=== PATIENT | male | born 1995 | race Caucasian/White ===

== ENCOUNTER 2017-01-17 12:09 | Emergency (ER) | payer OTHER ==
[~2017-01-17] VITALS: Ht 188 cm; Wt 79.5 kg
[2017-01-17 12:12] VITALS: BP 136/60; TEMP 98.1
[2017-01-17 13:38] VITALS: PULSE 69
[2017-01-17] MEDS ORDERED: CRUTCHES MC (13:38)
== END 2017-01-17 13:40 | disposition home or self-care (01) ==
LOC: COL.ER 12:09
DX: S93.402A Sprain of unspecified ligament of left ankle, initial encounter (principal); X50.0XXA Overexertion from strenuous movement or load, initial encounter; Y93.66 Activity, soccer

== ENCOUNTER → 2018-02-07 | Outpatient (CLI) | payer SELFPAY ==
[~2018-02-07] MED LIST: CRUTCHES MC
== END ==
LOC: COL.RAD 13:30
DX: M25.511 Pain in right shoulder (principal)
CPT/HCPCS: A9585; Q9967

== ENCOUNTER → 2018-03-29 | Outpatient (CLI) | payer OTHER | LOC: COL.RAD 13:11 | DX: F07.81 Postconcussional syndrome (principal) | CPT/HCPCS: A9585 ==

== ENCOUNTER 2018-11-21 21:31 | Emergency (ER) | payer OTHER ==
[~2018-11-21] VITALS: Ht 188 cm; Wt 77.3 kg
[2018-11-21] MEDS ORDERED: ADVIL200 MG PO (22:13)
[2018-11-21] MEDS ORDERED: TYLENOL 500MG500 MG PO (22:13)
[2018-11-21] MEDS ORDERED: SEROQUEL50 MG PO (22:13)
[2018-11-21] MEDS ORDERED: AMBIEN 10MG10 MG PO (22:13)
[2018-11-21] MEDS ORDERED: ZOLOFT 50MG50 MG PO (22:13)
[2018-11-21 22:26] LABS: BASO % 0.7 % (0.0-2.0); EOS # 0.1 (0.0-0.7); EOS % 1.1 % (0-4.0); GRAN # 2.3 (1.4-6.5); GRAN % 51.2 % (42.2-75.2); HEMATOCRIT 43.1 % (42.0-52.0); HEMOGLOBIN 14.4 g/dl (13.5-18.0); LYMPH # 1.5 (1.2-3.4); LYMPH % 34.8 % (20.0-51.0); MEAN CELL VOLUME 87 fl (80.0-100.0); MEAN CORPUSCULAR HEMOGLOBIN 29 pg (27.0-31.0); MEAN CORPUSCULAR HGB CONC 33 g/dl (33.0-37.0); MONO # 0.5 (0.1-0.6); PLATELET COUNT 182 K/mm3 (130-400); RED BLOOD COUNT 4.97 M/mm3 (4.20-5.60); REDCELL DISTRIBUTION WIDTH-CV 12.8 % (11.5-14.5)
[2018-11-21 22:39] LABS: ALANINE AMINOTRANSFERASE 21 U/L (21-72); ALBUMIN 4.7 gm/dL (3.5-5.0); ALCOHOL(ethanol),MEDICAL 213 mg/dL; ALKALINE PHOSPHATASE 67 U/L (50-136); ANION GAP 17 mmol/L (7-16); AST,SGOT 43 U/L (15-37); BILIRUBIN,TOTAL 0.3 mg/dL (0.0-1.0); BLOOD UREA NITROGEN 8 mg/dL (9-20); CALCIUM 9.2 mg/dL (8.4-10.2); CARBON DIOXIDE 24 mmol/L (22-30); CHLORIDE 106 mmol/L (98-107); CREATININE, serum 0.95 (0.66-1.25); GLUCOSE 95 mg/dL (74-106); POTASSIUM 3.7 mmol/L (3.4-5.0); SODIUM 147 mmol/L (137-145); TOTAL PROTEIN 8.1 gm/dL (6.4-8.2)
[2018-11-21 22:47] LABS: ACETAMINOPHEN < 10 ug/mL (10-30); SALICYLATE < 1.0 mg/dL
[2018-11-21 23:44] LABS: COLLECTION METHOD CLEAN CATCH
[2018-11-21 23:54] LABS: PH 6 (5-8); SQUAMOUS EPITHELIAL None Seen /hpf; URINE APPEARANCE Clear; URINE BACTERIA None Seen /hpf; URINE BILIRUBIN Negative (NEGATIVE); URINE BLOOD 1+ (NEGATIVE); URINE COLOR Yellow; URINE GLUCOSE Negative (NEGATIVE); URINE KETONE Negative (NEGATIVE); URINE LEUKOCYTE ESTERASE Negative (NEGATIVE); URINE NITRATE Negative (NEGATIVE); URINE PROTEIN(semi-quant) Negative (NEGATIVE); URINE RBC 0-2 /hpf; URINE UROBILINOGEN Negative (NEGATIVE)
[2018-11-21 23:58] LABS: TRICYCLIC ANTIDEPRESS URINE NEGATIVE
[2018-11-22 17:04] VITALS: BP 119/68; PULSE 89; TEMP 98.2
== END 2018-11-22 17:12 | disposition home or self-care (01) ==
LOC: COL.ER 21:31
PROVIDERS: Physician Assistant
DX: R45.851 Suicidal ideations (principal); F32.9 Major depressive disorder, single episode, unspecified; F41.9 Anxiety disorder, unspecified; F10.129 Alcohol abuse with intoxication, unspecified; F12.90 Cannabis use, unspecified, uncomplicated; Y90.7 Blood alcohol level of 200-239 mg/100 ml